=== PATIENT | female | born 1985 | race Two or more races ===

== ENCOUNTER → 2017-07-27 08:01 | Outpatient (CLI) | payer OTHER ==
[~2017-07-27] VITALS: Ht 152.4 cm; Wt 1020.6 kg
[~2017-07-27 08:01] MED LIST: AMOX1TAB12 PO; BUCALSEP SPRAY30 ML MM; CARVEDILOL25 MG; CARVEDILOL25 MG PO; CYCLOBENZAPRINE10 MG PO; DICLOFENAC SODI50 MG PO; DOXAZOSIN MESYLA4 MG; DOXAZOSIN MESYLA4 MG PO; ELOCON45 G1 TP; HYDROCHLOROTH12.5 M1; HYDROCHLOROTH12.5 M1 PO; HYDROCHLOROTHIA25 MG; HYDROCHLOROTHIA25 MG PO; HYZAAR 100-121 UDTAB; HYZAAR 100-251 EACH PO; NAPR500T14 PO; NIFEDIPINE30 MG/BOTT PO; PROVENTIL HFA6.7 GM IH; ROCEPHIN1 G/VIAL IJ; ULTRACET PO; [UNRECOGNIZED DRUG - OTHER] OT
== END | disposition home or self-care (01) ==
LOC: PPHC 08:01
DX: I10 Essential (primary) hypertension (principal); Z76.0 Encounter for issue of repeat prescription

== ENCOUNTER 2017-11-19 10:47 | Outpatient (CLI) | payer OTHER | END 2017-11-19 10:50 | disposition home or self-care (01) | LOC: SONOGRAMA 10:47 | DX: I10 Essential (primary) hypertension (principal) ==

== ENCOUNTER 2017-11-19 11:30 | Outpatient (CLI) | payer OTHER | END 2017-11-19 12:00 | disposition home or self-care (01) | LOC: NUCLEAR 11:30 | DX: I10 Essential (primary) hypertension (principal) ==

== ENCOUNTER → 2017-11-19 | Outpatient (CLI) | payer OTHER | END | disposition home or self-care (01) | LOC: PPHC 13:18 | DX: Z76.0 Encounter for issue of repeat prescription (principal) ==

== ENCOUNTER 2017-12-22 10:23 | Outpatient (CLI) | payer OTHER | END 2017-12-22 10:28 | disposition home or self-care (01) | LOC: LAB 10:23 | DX: D64.9 Anemia, unspecified (principal) ==

== ENCOUNTER 2018-09-19 09:50 | Outpatient (CLI) | payer OTHER | END 2018-09-19 09:58 | disposition home or self-care (01) | LOC: LAB 09:50 | DX: I10 Essential (primary) hypertension (principal); Z00.00 Encounter for general adult medical examination without abnormal findings; E78.49 Other hyperlipidemia; R42 Dizziness and giddiness ==

== ENCOUNTER 2018-09-30 08:34 | Emergency (ER) | payer OTHER ==
[~2018-09-30] VITALS: Ht 170.2 cm; Wt 104.3 kg
== END 2018-09-30 11:32 | disposition home or self-care (01) ==
LOC: ER 08:34
DX: K42.9 Umbilical hernia without obstruction or gangrene (principal)

== ENCOUNTER 2018-10-08 08:27 | Outpatient (CLI) | payer OTHER | END 2018-10-08 08:40 | disposition home or self-care (01) | LOC: SONOGRAMA 08:27 | DX: N85.2 Hypertrophy of uterus (principal); R10.9 Unspecified abdominal pain ==

== ENCOUNTER 2018-11-03 07:48 | Outpatient (CLI) | payer OTHER | END 2018-11-03 07:56 | disposition home or self-care (01) | LOC: LAB 07:48 | DX: R10.9 Unspecified abdominal pain (principal) ==

== ENCOUNTER 2018-11-17 12:04 | Emergency (ER) | payer OTHER ==
[~2018-11-17] VITALS: Ht 170.2 cm; Wt 106.6 kg
== END 2018-11-17 14:36 | disposition home or self-care (01) ==
LOC: ER 12:04
DX: J06.9 Acute upper respiratory infection, unspecified (principal)

== ENCOUNTER → 2019-04-13 15:47 | Outpatient (CLI) | payer OTHER | END | disposition home or self-care (01) | LOC: LAB 15:47 | DX: J11.1 Influenza due to unidentified influenza virus with other respiratory manifestations (principal) ==

== ENCOUNTER → 2019-06-20 | Outpatient (CLI) | payer OTHER | END | disposition home or self-care (01) | LOC: RAD 14:16 | DX: M54.6 Pain in thoracic spine (principal) ==

== ENCOUNTER → 2019-07-08 | Outpatient (CLI) | payer OTHER | END | disposition home or self-care (01) | LOC: RAD 12:04 | DX: S90.912A Unspecified superficial injury of left ankle, initial encounter (principal) ==

== ENCOUNTER 2019-08-12 16:36 | Outpatient (CLI) | payer OTHER | END 2019-08-12 20:25 | disposition home or self-care (01) | LOC: LAB 16:36 | DX: J11.1 Influenza due to unidentified influenza virus with other respiratory manifestations (principal); R05 Cough ==

== ENCOUNTER 2019-11-17 08:16 | Outpatient (CLI) | payer OTHER | END 2019-11-17 08:20 | disposition home or self-care (01) | LOC: LAB 08:16 | DX: E78.89 Other lipoprotein metabolism disorders (principal); I10 Essential (primary) hypertension; E11.9 Type 2 diabetes mellitus without complications; N39.0 Urinary tract infection, site not specified ==

== ENCOUNTER 2019-11-17 09:10 | Outpatient (CLI) | payer OTHER | END 2019-11-17 09:18 | disposition home or self-care (01) | LOC: MAMO-SONO 09:10 | DX: Z12.31 Encounter for screening mammogram for malignant neoplasm of breast (principal); N63.10 Unspecified lump in the right breast, unspecified quadrant; N63.20 Unspecified lump in the left breast, unspecified quadrant; Z87.898 Personal history of other specified conditions ==

== ENCOUNTER 2020-02-28 14:24 | Outpatient (CLI) | payer OTHER | END 2020-02-28 14:27 | disposition home or self-care (01) | LOC: CERTIFICAD 14:24 | PROVIDERS: ATTEND Family Medicine | DX: Z11.1 Encounter for screening for respiratory tuberculosis (principal) ==

== ENCOUNTER 2020-04-06 16:10 | Outpatient (CLI) | payer OTHER | END 2020-04-09 16:11 | disposition home or self-care (01) | LOC: PPH VACUNA 16:10 | DX: Z23 Encounter for immunization (principal) ==

== ENCOUNTER → 2020-06-19 08:45 | Outpatient (CLI) | payer OTHER | END | disposition home or self-care (01) | LOC: LAB 08:45 | PROVIDERS: ATTEND Internal Medicine | DX: D64.89 Other specified anemias (principal); I10 Essential (primary) hypertension; E78.89 Other lipoprotein metabolism disorders; N39.0 Urinary tract infection, site not specified; E55.9 Vitamin D deficiency, unspecified ==

== ENCOUNTER 2020-12-27 06:54 | Emergency (ER) | payer OTHER ==
[~2020-12-27] VITALS: Ht 167.6 cm; Wt 107.5 kg
[2020-12-27] MEDS ORDERED: KETO10TA2 PO (08:54)
== END 2020-12-27 09:02 | disposition home or self-care (01) ==
LOC: ER 06:54
DX: H60.8X1 Other otitis externa, right ear (principal)

== ENCOUNTER 2021-07-12 09:00 | Outpatient (CLI) | payer OTHER ==
[~2021-07-12 09:00] MED LIST changes: +KETO10TA2 PO
== END 2021-07-12 09:15 | disposition home or self-care (01) ==
LOC: PPH VACUNA 09:00
PROVIDERS: ATTEND Emergency Medicine Pediatric Emergency Medicine
DX: Z23 Encounter for immunization (principal)
CPT/HCPCS: 90686; G0008

== ENCOUNTER 2021-08-02 09:00 | Outpatient (CLI) | payer OTHER | END 2021-08-02 09:15 | disposition home or self-care (01) | LOC: PPH VACUNA 09:00 | PROVIDERS: ATTEND Emergency Medicine Pediatric Emergency Medicine | DX: Z23 Encounter for immunization (principal) ==

== ENCOUNTER 2021-09-13 13:45 | Emergency (ER) | payer OTHER ==
[~2021-09-13] VITALS: Ht 167.6 cm; Wt 112.0 kg
== END 2021-09-13 16:41 | disposition home or self-care (01) ==
LOC: ER 13:45
DX: R00.2 Palpitations (principal); I10 Essential (primary) hypertension

== ENCOUNTER 2021-12-31 10:09 | Outpatient (CLI) | payer OTHER | END 2021-12-31 10:11 | disposition home or self-care (01) | LOC: LAB 10:09 | PROVIDERS: ATTEND Internal Medicine | DX: D64.9 Anemia, unspecified (principal); I10 Essential (primary) hypertension; N39.0 Urinary tract infection, site not specified; E78.9 Disorder of lipoprotein metabolism, unspecified; E06.9 Thyroiditis, unspecified; E55.9 Vitamin D deficiency, unspecified; M18.0 Bilateral primary osteoarthritis of first carpometacarpal joints ==

== ENCOUNTER 2022-02-27 10:37 | Emergency (ER) | payer OTHER ==
[~2022-02-27] VITALS: Ht 167.6 cm; Wt 105.2 kg
== END 2022-02-27 11:11 | disposition home or self-care (01) ==
LOC: ER 10:37
DX: M43.6 Torticollis (principal)

== ENCOUNTER 2022-05-08 09:48 | Outpatient (CLI) | payer OTHER | END 2022-05-08 09:52 | disposition home or self-care (01) | LOC: MAMO-SONO 09:48 | PROVIDERS: ATTEND Surgery | DX: Z12.31 Encounter for screening mammogram for malignant neoplasm of breast (principal) ==

== ENCOUNTER 2022-09-10 08:29 | Emergency (ER) | payer OTHER ==
[~2022-09-10] VITALS: Ht 170.2 cm; Wt 97.5 kg
[2022-09-10] MEDS ORDERED: NORFLEX100MG PO (10:42)
[2022-09-10] MEDS ORDERED: KETO10TA2 PO (10:42)
== END 2022-09-10 12:24 | disposition home or self-care (01) ==
LOC: ER 08:29
DX: H92.02 Otalgia, left ear (principal); Z20.822 Contact with and (suspected) exposure to COVID-19; I10 Essential (primary) hypertension

== ENCOUNTER 2023-03-25 07:57 | Outpatient (CLI) | payer OTHER ==
[~2023-03-25 07:57] MED LIST changes: +NORFLEX100MG PO
== END 2023-03-25 08:08 | disposition home or self-care (01) ==
LOC: SONOGRAMA 07:57
PROVIDERS: ATTEND Surgery
DX: K76.0 Fatty (change of) liver, not elsewhere classified (principal)

== ENCOUNTER 2023-04-10 08:59 | Outpatient (CLI) | payer OTHER | END 2023-04-10 09:09 | disposition home or self-care (01) | LOC: PPH VACUNA 08:59 | PROVIDERS: ATTEND Emergency Medicine Pediatric Emergency Medicine | DX: Z23 Encounter for immunization (principal) | CPT/HCPCS: 90686; G0008 ==